=== PATIENT | female | born 1960 | race Caucasian/White ===

== ENCOUNTER 2017-07-25 06:29 | Day surgery (SDC) | payer OTHER ==
[~2017-07-25] VITALS: Ht 157.5 cm; Wt 62.6 kg
[~2017-07-25 06:29] MED LIST: ACETAMINOPHEN-1 EAC1 PO; CALCIUM + VITA1 EACH PO; COZAAR100 MG PO; ENZYME DIGEST1 EACH PO; LIALDA1.2 GM PO; MELOXICAM15 MG PO; MULTIVITAMINS1 EAC7 PO; OMEPRAZOLE20 MG PO
--- NOTE | 2017-07-25 08:11 | NUR ---
[facility]17 [facility] [facility]AK[facility] THE PT.
--- NOTE | 2017-08-26 07:48 | OR ---
[facility] [address], [place] [address] Signed DATE OF PROCEDURE: 07/25/17 PREOPERATIVE DIAGNOSIS History of ulcerative colitis, clinically in remission. POSTOPERATIVE DIAGNOSIS Mild persistent colitis of left colon sigmoid and rectum. PROCEDURE Total colonoscopy to cecum with biopsies. SURGEON: Gretchen Umanzor MD. ANESTHESIA Intravenous sedation, Fentanyl 100 mcg, Versed 6 mg. INDICATION This 57-year-old white woman is a patient of Dr. Anam Limon and Dr. Irish Wong and was evaluated by me in November of 2016 with complaints of abdominal pain and other problems and found to have colitis consistent with ulcerative colitis. She was treated with steroids and Mesalamine, now only on Mesalamine (Lialda). She is feeling quite well having no rectal bleeding, diarrhea, or other symptoms. She is admitted at this time to undergo colonoscopy to assess for mucosal healing. She understands the risks of bleeding, infection, and perforation related to colonoscopy and wished to proceed. FINDINGS The prep was excellent. Complete colonoscopy was undertaken to the cecum. There was no evidence of gross inflammatory change of the right colon or even the transverse colon, but the left sigmoid and rectal areas still had mild inflammatory change consistent with ulcerative colitis. There was no evidence of polyp or diverticular formation or other abnormality. PROCEDURE The patient was brought to the endoscopy suite and placed in lateral decubitus position. Given intravenous sedation to the point of slurred speech and nystagmus. Digital rectal examination was normal. An Olympus video colonoscope was passed in the rectum and manipulated throughout the colon ultimately intubating the cecum itself. The cecum and right colon appeared grossly normal. Biopsies were taken of the cecum and at the hepatic flexure upon withdrawal of scope, the transverse colon was biopsied and there appeared to be the findings of mild inflammation of the left colon. Biopsies were taken there as the scope was withdrawn and the sigmoid which clearly had some inflammation. The appearance was much improved Electronically Signed By: GRETCHEN UMANZOR MD 08/26/17 0748 PATIENT NAME: BERNADINE URIAS OPERATIVE REPORT DATE OF : 58 PHYSICIAN: GRETCHEN UMANZOR MD REPORT #: [id number] REPORT IS CONFIDENTIAL AND NOT TO BE RELEASED WITHOUT AUTHORIZATION [facility] [address], [place] [address] Signed compared to previous evaluation, however. Retroflexed view in the rectum was undertaken and there remained some mild rectal inflammation. Scope was removed. The patient was taken to recovery in good condition. CONCLUDING DIAGNOSIS Ongoing mild inflammation of left colon, sigmoid, and rectum, possibly occult inflammation of the remaining colon. PLAN We would recommend continued Lialda at this time. I would like to see her back in 4-6 weeks and review her pathology reports. Although, she is feeling symptom free, I believe that ongoing therapy will be necessary to maintain remission with what is almost certainly ulcerative colitis. MD ALAN Valencia/Scott /[id number] cc: MD Irish Pryor MD Electronically Signed By: GRETCHEN UMANZOR MD 08/26/17 0748 PATIENT NAME: ADONAYBERNADINETED TAYLOR OPERATIVE REPORT DATE OF : 58 PHYSICIAN: GRETCHEN UMANZOR MD REPORT #: [id number] REPORT IS CONFIDENTIAL AND NOT TO BE RELEASED WITHOUT AUTHORIZATION
== END 2017-07-25 08:45 | disposition home or self-care (01) ==
LOC: DS 06:29 → OPS 06:29 → DS 06:45 → OPS 06:45
PROVIDERS: Surgery
PROC: 0DBP8ZX Excision of Rectum, Via Natural or Artificial Opening Endoscopic, Diagnostic (ICD-10-PCS; 2017-07-25)
PROC: 0DBN8ZX Excision of Sigmoid Colon, Via Natural or Artificial Opening Endoscopic, Diagnostic (ICD-10-PCS; 2017-07-25)
PROC: 0DBM8ZX Excision of Descending Colon, Via Natural or Artificial Opening Endoscopic, Diagnostic (ICD-10-PCS; 2017-07-25)
PROC: 0DBL8ZX Excision of Transverse Colon, Via Natural or Artificial Opening Endoscopic, Diagnostic (ICD-10-PCS; 2017-07-25)
PROC: 0DBH8ZX Excision of Cecum, Via Natural or Artificial Opening Endoscopic, Diagnostic (ICD-10-PCS; principal; 2017-07-25 06:45)
DX: K52.9 Noninfective gastroenteritis and colitis, unspecified (principal); I10 Essential (primary) hypertension; Z98.890 Other specified postprocedural states
CPT/HCPCS: 99152; 99153; J1100; J2250; J2405; J3010; J7120

== ENCOUNTER 2019-11-20 08:06 | Day surgery (SDC) | payer OTHER ==
[~2019-11-20] VITALS: Ht 157.5 cm; Wt 62.6 kg
[~2019-11-20 08:06] MED LIST changes: +METHYLPREDNISOLO4 M1 PO; +NORCO 5-325 TA1 EACH PO; +PROGESTERONE100 MG PO
--- NOTE | 2019-11-20 11:15 | NUR ---
PT ALERT, ORIENTED AND SUPPORTED BY HER JASMIN. PT WAS ANXIOUS TO TALK TO SECURITIES CONSULTANT. I LET HER KNOW THEY WILL COME IN AND VISIT BEFORE. PT REQUESTED PRAYER, WILL FOLLOW NEEDED
--- NOTE | 2019-11-20 12:05 | NUR ---
11/20/19 1205 Sheets,Jory 1156 PT ARRIVED TO PACU ON 6L VIA MASK, PT DENIES NAUSEA AND PAIN. VSS. PT WAKES EASILY TO VERBAL STIMULI.
[2019-11-20] MEDS ORDERED: TYLENOL EXTRA500 MG PO (12:20)
[2019-11-20] MEDS ORDERED: OXYCODON-ACETA1 EAC2 PO (12:20)
[2019-11-20] MEDS ORDERED: MOTRIN IB200 M1 PO (12:21)
--- NOTE | 2019-11-21 08:21 | OR ---
[facility] [address], [place] [address] Signed DATE OF OPERATION: 11/20/2019 SURGEON: Gretchen Umanzor MD PREOPERATIVE DIAGNOSIS: Right upper inner thigh symptomatic soft tissue mass (pain). 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 PROCEDURE: Excision of right upper inner leg subfascial soft tissue mass with layered closure. ANESTHESIA: Local with monitored anesthesia care, Gretchen Santa CRNA (Marcaine 0.25% with epinephrine 6 mL). INDICATION: This 59-year-old white woman is a patient of Dr. Irish Wong and Patricia Licona, and well known to me from the past for management of ulcerative colitis. She has developed a soft tissue mass in the upper inner thigh, which is painful and causes chafing. Clinically, it appears to be likely a lipoma, it has a dome-shaped nodule about the size of a marble, but an underlying soft tissue mass contiguous with it consistent with a much larger lipomatous mass. She is admitted at this time to undergo excision of the mass. She understands the risks of bleeding, infection, cosmetic deformity, recurrence, and other unforeseen complications. She understands that and she wished to proceed. FINDINGS: Indeed, the mass was a lipomatous mass. It had a dome like appearance and a substantial component down to the muscular fascia of the inner thigh. It was completely excised and closed in layers. DESCRIPTION OF PROCEDURE: The patient was brought to the operating room, placed in supine position, given intravenous sedation with propofol infusional technique. Preoperative antibiotic Ancef was given. Sequential compression device stockings used and heparin subcutaneously administered. Her left leg was placed in a relative frog-legged position and the inner thigh examined down the vulvar area isolated with a 10-20 drape. The inner thigh was then prepared with a chlorhexidine solution and draped sterilely. 1% lidocaine was injected locally and an incision made directly over the soft tissue mass. Dissection Electronically Signed By: GRETCHEN UMANZOR MD 11/21/19 0821 PATIENT NAME: BERNADINE URIAS OPERATIVE REPORT DATE OF : 58 REPORT #: [id number] PHYSICIAN: GRETCHEN UMNAZOR MD PCP: PATRICIA LICONA MD REPORT IS CONFIDENTIAL AND NOT TO BE RELEASED WITHOUT AUTHORIZATION [address] [address] Signed was carried through the dermis with sharp dissection identifying a multilobulated lipoma. The lipoma extended to the muscular compartment of the inner thigh. Complete excision was accomplished with blunt and electrocautery dissection. The wound was then closed with interrupted 2-0 Vicryl in the deeper layers and running subcuticular with 3-0 Vicryl for the skin. Steri-Strips were applied as were two small OpSite dressings. The leg was returned to a neutral position and she was transferred to recovery room in good condition. BLOOD LOSS: Minimal. COMPLICATIONS: None. MD ALAN Valencia/MAHESH /[id number] cc: MD Patricia Hyde MD Copies: IRISH WONG MD ~ Electronically Signed By: GRETCHEN UMANZOR MD 11/21/19 0821 PATIENT NAME: BERNADINE URIAS OPERATIVE REPORT DATE OF : 58 REPORT #: [id number] PHYSICIAN: GRETCHEN UMANZOR MD PCP: PATRICIA LICONA MD REPORT IS CONFIDENTIAL AND NOT TO BE RELEASED WITHOUT AUTHORIZATION
== END 2019-11-20 13:00 | disposition home or self-care (01) ==
LOC: OPS 08:06 → DS 08:06 → OPS 09:30 → DS 09:30 → OPS 10:00
PROVIDERS: Surgery
PROC: 0JBL0ZZ Excision of Right Upper Leg Subcutaneous Tissue and Fascia, Open Approach (ICD-10-PCS; principal; 2019-11-20 10:00)
DX: D17.23 Benign lipomatous neoplasm of skin and subcutaneous tissue of right leg (principal); K21.0 Gastro-esophageal reflux disease with esophagitis; K51.90 Ulcerative colitis, unspecified, without complications; Z79.899 Other long term (current) drug therapy
CPT/HCPCS: 00400; J0690; J1100; J1644; J1885; J2001; J2250; J2405; J2704; J3010; J7121

== ENCOUNTER 2021-02-09 06:21 | Day surgery (SDC) | payer OTHER ==
[~2021-02-09] VITALS: Ht 157.5 cm; Wt 63.6 kg
[~2021-02-09 06:21] MED LIST changes: +FLAGYL500 MG; +MAGNESIUM400 MG PO; +MOTRIN IB200 M1 PO; +MULTIPLE VITAM1 EAC1 PO; +OXYCODON-ACETA1 EAC2 PO; +PERCOCET 5-3251 EACH PO; +PREDNISONE20 MG; +PREDNISONE20 MG PO; +PROBIOTIC1 EAC1 PO; +TYLENOL EXTRA500 MG PO; +TYLENOL325 MG PO
--- NOTE | 2021-02-09 08:02 | NUR ---
02/09/21 0802 Story,Melba 0800 PT. ARRIVED DROWSY BUT AWAKENS EASILY. OXYGEN 2L NC IN PLACE. PT. CALM WITH EYES CLOSED.
--- NOTE | 2021-02-09 15:32 | OR ---
[facility] [address] [place], [place] [address] Signed DATE OF OPERATION: 02/09/2021 SURGEON: Gretchen Umanzor MD PREOPERATIVE DIAGNOSES: 1. Known history of gastroesophageal reflux and history of H. pylori. 2. Episode of severe upper abdominal pain with associated coronavirus disease several months ago (now resolved). POSTOPERATIVE DIAGNOSES: Hiatal hernia without severe esophagitis; no evidence of gastritis, ulcer or neoplasm. PROCEDURE: Esophagogastroduodenoscopy with biopsy. ANESTHESIA: Intravenous sedation, fentanyl 100 mcg and Versed 3 mg. INDICATION: This 61-year-old white woman is a patient of Dr. Patricia Licona. She is known to me from the past longstanding. She has been diagnosed with ulcerative colitis and has been managed by me for that for quite some time. She is currently on mesalamine and her symptoms are well controlled. Several months ago, she had rather significant upper abdominal pain. Additionally, fever was noted. She underwent COVID testing which was positive. She has resolved those symptoms essentially entirely. She is not taking any PPI medication currently. She has history of H. pylori and known hiatal hernia and reflux esophagitis in the past. She is admitted to undergo upper endoscopy to better characterize the recent symptoms and to assess for recurrent H. pylori and other gastrointestinal problem. The risks of bleeding, infection, and perforation were reviewed with her. She understands and wished to proceed. FINDINGS: The esophagus itself showed only mild distal esophagitis. There was no sign of Cesar's epithelium and certainly, no stricture or ulceration. Hiatal hernia was present, moderate in size. The stomach itself appeared reasonably normal. There was mild reticular inflammation of the antrum. CLOtest and biopsies were negative 15 minutes post procedure. The duodenum was normal. DESCRIPTION OF PROCEDURE: The patient was brought to the endoscopy suite and given intravenous Zofran as she does Electronically Signed By: GRETCHEN UMANZOR MD 02/09/21 1532 PATIENT NAME: BERNADINE URIAS OPERATIVE REPORT DATE OF : 58 REPORT #: [id number] PHYSICIAN: GRETCHEN UMANZOR MD PCP: PATRICIA LICONA MD REPORT IS CONFIDENTIAL AND NOT TO BE RELEASED WITHOUT AUTHORIZATION [facility] [address] [place], [place] [address] Signed have nausea associated with intravenous sedation in the past. She was subsequently given fentanyl and Versed for intravenous sedation with full cardiopulmonary monitoring. Lidocaine hypopharyngeal anesthesia was administered previously. A bite block was placed. An Olympus video upper endoscope was passed in the hypopharynx. The vocal cords appeared normal. Scope was advanced to the esophagus throughout its length it was reasonably normal. There was no Cesar's epithelium and no stricture, only mild inflammatory change of the distal portion. The scope was passed to the stomach, which was insufflated with air. Rugal folds appeared normal. There was mild inflammatory change of the antrum, but no ulceration or erosion. The pylorus was normal. Scope was passed through into the duodenum, which was essentially normal. Biopsies were taken of the 2nd and 3rd portions as well as the bulbar portion. The scope was withdrawn and biopsies were then taken of the antrum for both TARYN and pathologic testing. Retroflexed view was undertaken showing a moderate-sized hiatal hernia. The scope was withdrawn to the distal esophagus and biopsies were obtained there. Further withdrawal allowed for biopsy of the mid esophagus. The scope was withdrawn and there were no other findings of concern. The patient was taken to the recovery room in good condition. CONCLUDING DIAGNOSES: 1. Hiatal hernia with only mild esophagitis; not on any PPI or H2 homero medication currently. 2. No evidence of H. pylori on CLOtest thus far. PLAN: As the patient is symptom free, we will not initiate PPI medication at this time. If her symptoms should recur, consideration will be made for medical management with PPI medication. We will see her back in 4-6 weeks and review her pathology reports. It is uncertain of her gastrointestinal symptoms, which were acute and limited in time related to her concurrent COVID infection, though it is a consideration obviously. MD ALAN Valencia/MODL /[id number] cc: Patricia Licona MD Electronically Signed By: GRETCHEN UMANZOR MD 02/09/21 1532 PATIENT NAME: BERNADINE URIAS OPERATIVE REPORT DATE OF : 58 REPORT #: [id number] PHYSICIAN: GRETCHEN UMANZOR MD PCP: PATRICIA LICONA MD REPORT IS CONFIDENTIAL AND NOT TO BE RELEASED WITHOUT AUTHORIZATION [facility] [address] [place] [id number] Signed Copies: ~ Electronically Signed By: GRETCHEN UMANZOR MD 02/09/21 1532 PATIENT NAME: ADONAYBERNADINE M OPERATIVE REPORT DATE OF : 58 REPORT #: [id number] PHYSICIAN: GRETCHEN UMANZOR MD PCP: PATRICIA LICONA MD REPORT IS CONFIDENTIAL AND NOT TO BE RELEASED WITHOUT AUTHORIZATION
== END 2021-02-09 08:40 | disposition home or self-care (01) ==
LOC: DS 06:21 → OPS 06:21 → DS 06:45 → OPS 08:40
PROVIDERS: ATTEND Surgery
PROC: 0DB98ZX Excision of Duodenum, Via Natural or Artificial Opening Endoscopic, Diagnostic (ICD-10-PCS; 2021-02-09)
PROC: 0DB28ZX Excision of Middle Esophagus, Via Natural or Artificial Opening Endoscopic, Diagnostic (ICD-10-PCS; 2021-02-09)
PROC: 0DB38ZX Excision of Lower Esophagus, Via Natural or Artificial Opening Endoscopic, Diagnostic (ICD-10-PCS; 2021-02-09)
PROC: 0DB78ZX Excision of Stomach, Pylorus, Via Natural or Artificial Opening Endoscopic, Diagnostic (ICD-10-PCS; principal; 2021-02-09 06:45)
DX: K21.00 Gastro-esophageal reflux disease with esophagitis, without bleeding (principal); K44.9 Diaphragmatic hernia without obstruction or gangrene; K51.90 Ulcerative colitis, unspecified, without complications; K59.00 Constipation, unspecified; I10 Essential (primary) hypertension; Z86.16 Personal history of COVID-19; Z87.19 Personal history of other diseases of the digestive system; Z86.19 Personal history of other infectious and parasitic diseases
CPT/HCPCS: 99153; G0500; J2250; J2405; J3010